=== PATIENT | male | born 1970 | race Caucasian/White ===

== ENCOUNTER → 2019-10-10 | Outpatient (CLI) | payer OTHER, SELFPAY ==
--- NOTE | 2019-10-10 | LES_PTH ---
PATIENT: VIKI ÁLVAREZ LOC: [facility] U#:[id number] AGE/SX: 49/M ROOM: RE10/10/[address]: Dr. Maxwell Swanson MD : [id number] BED: DIS: 10/10/2019 SPEC #: [id number] RECD: 10/10/19 17:27 STATUS: FRANKNikki GARCÍA #: [id number] LIANNA: 10/10/19 00:[address]: Maxwell Swanson DEPT: SURGICAL PATHOLOGY RECD BY: Conner Pratt ENTERED: 10/11/19 10:58 SP TYPE: Lesion OTHR DR: No Primary Care Phys Tissues: A - Skin of face, NOS B - Skin of lip, NOS Procedures: PAS Fungus (control) Special Stain Group I Surgery Specimen Level IV HEADER OPERATION: Intradermal biopsy cheek lesion PRE-OP DIAGNOSIS: Enlarging lesion left supramedial cheek and right lower lateral lip TISSUE SUBMITTED: A - Left supramedial cheek, B - Right lower lateral lip MICROSCOPIC DIAGNOSIS A. Left supramedial cheek, biopsy: Dermal and follicular chronic inflammation. Negative for malignancy. Special stain for fungi is positive for organisms (Tinea, dermatophytes) in superficial keratin layers; matched control is appropriate. B. Right lower lip lesion, biopsy: Intradermal nevus. SJ:rg 10/14/19 COMMENT Correlation with clinical findings and appropriate follow up are necessary. Case has been reviewed in consultation with Dr. Garcia who concurs with the above diagnosis. IDC:AM MICROSCOPIC DESCRIPTION Slides are reviewed. GROSS DESCRIPTION A - Received in fixative is one container labeled with the patient's name and designated supramedial cheek. The specimen consists of a piece of olivarez-white skin measuring 0.3 x 0.2 x 0.1 cm. The entire specimen is submitted in one cassette. B - Received in fixative is one container labeled with the patient's name and designated right lower lateral lip. The specimen consists of a piece of olivarez-white mucosal tissue measuring 0.5 x 0.3 x 0.1 cm. The entire specimen is submitted in one cassette. / DONOVAN:kamila 10/11/19 TC:1 CPT: 77482 x2, 15860
== END | disposition home or self-care (01) ==
PROVIDERS: Referring Provider Surgery; Visit Provider Surgery
DX: K13.0 Diseases of lips (principal)
CPT/HCPCS: 88305; 88312